=== PATIENT | female | born 1950 | race Caucasian/White ===

== ENCOUNTER 2022-08-31 10:00 | Day surgery (SDC) | payer MEDICARE, SELFPAY ==
[2022-08-31 10:05] VITALS: BP 171/90; PULSE 70; RESP 20; TEMP 36.5; O2SAT 98
--- NOTE | 2022-08-31 10:35 | ANES.PREOP_ITS ---
General Info Date of Service Date Performed: 08/31/22 Height: 5 ft 2 in Weight: 111.6 kg Body Mass Index (BMI): 45.0 Surgical Procedure: Operation Date: 08/31/22 13:40 Proposed Procedure Side Surgeon p Cataract Extraction with IOL Implant Left Levar Frazier MD Meds Allergies and Home Medications Allergies Allergy/AdvReac Type Severity Reaction Status Date / Time celecoxib [From Celebrex] AdvReac Verified 08/31/22 10:14 zolpidem [From Ambien] AdvReac Verified 08/31/22 10:14 Home Medication Medication Instructions Recorded acetaminophen 500 mg tablet 1,000 mg PO Q6H PRN 03/27/21 (Tylenol Extra Strength) albuterol sulfate 2.5 mg/3 mL 2.5 mg inhalation Q4H PRN 03/27/21 (0.083 %) solution for nebulization albuterol sulfate 90 mcg/actuation 2 puff inhalation 6XD 03/27/21 aerosol inhaler aspirin 81 mg tablet,delayed 81 mg PO DAILY 03/27/21 release atorvastatin 10 mg tablet 10 mg PO DAILY 03/27/21 fluticasone propionate 230 2 puff inhalation BID 03/27/21 mcg-salmeterol 21 mcg/actuation HFA inhaler (Advair HFA) levothyroxine 175 mcg tablet 175 mcg PO DAILY 03/27/21 metformin 500 mg tablet 500 mg PO BID 03/27/21 calcium carbonate 600 mg calcium 600 mg PO DAILY 03/18/22 (1,500 mg) tablet (Calcium) meloxicam 7.5 mg tablet 7.5 mg PO DAILY 03/18/22 stool softner PO 03/18/22 Current Visit Medications: Current Medications Generic Name Dose Route Start Last Admin Trade Name Freq PRN Reason Stop Dose Admin Acetaminophen 1,000 mg 08/31/22 06:00 Acetaminophen 500 Mg Tab PO Q4H PRN PRN Miscellaneous Medication 0 ml 08/31/22 06:00 08/31/22 10:30 Tropicam./Phenyleph. (1/2.5%) 10 Ml Btl OS 1 drp DIRECTED [facility] Administration Miscellaneous Medication 0 ml 08/31/22 06:00 Prednisolone 1%, Moxifloxacin 0.5%, Nepafenac 0.1% 5ml Btl OS DIRECTED [facility] Tetracaine HCl 0 ml 08/31/22 06:00 Tetracaine 0.5% 4 Ml Btl OS DIRECTED [facility] PFSH Active Problems Active Problems: Problem Status Onset Code Hypothyroidism E03.9 Dyslipidemia E78.5 Secondary polycythemia D75.1 Insomnia G47.00 Obstructive sleep apnea syndrome in adult G47.33 Asthma J45.909 GERD (gastroesophageal reflux disease) K21.9 Non-alcoholic fatty liver disease K76.0 Posterior vaginal wall prolapse N81.6 Localized primary osteoarthritis M19.91 Arthropathy M12.9 Lower back pain M54.50 Sciatica M54.30 Backache M54.9 Dyspnea R06.00 History of malignant neoplasm of thyroid Z85.850 Pain, joint, shoulder, right M25.511 UIP (usual interstitial pneumonitis) J84.112 Esophageal dysphagia R13.19 Vocal cord paralysis, unilateral complete J38.01 URI (upper respiratory infection) J06.9 Medical History Medical History Failed intubation of airway Pt. stated this was when [facility] (Dr. Olson) was atempting to take a lung bx, wasn't able to do it and was sent to [facility] Interstitial lung disease Neutropenia Paralysis Paralysis of larynx Type 2 diabetes mellitus without complication Medical History Comments:: Hx of failed intubation @ [facility], was able to have procedure following this event at [facility] pt. stated this was over 10+ years ago Surgical History Surgical History H/O dilation and curettage H/O total thyroidectomy History of bronchoscopy History of lung biopsy History of thoracotomy History of tonsillectomy and adenoidectomy History of tubal ligation Hx of appendectomy Hx of colonoscopy S/P partial lobectomy of lung S/P TKR (total knee replacement) Tobacco Smoking/Tobacco Use Status: Never Substance Use Substance use type: does not use Vital Signs and Lab Results Vital Signs Most Recent Vital Signs in EMR: Most Recent Vital Signs Temp Pulse Resp BP Pulse Ox 36.5 C 70 20 171/90 H 98 08/31/22 10:05 08/31/22 10:05 08/31/22 10:05 08/31/22 10:05 08/31/22 10:05 Point of Care Results Point of Care Results: Finger Stick Blood Glucose 135 08/31/22 10:13 Lab Results Blood Type / Crossmatch: No Data to Display Complete Blood Count: No Data to Display Complete Metabolic Panel: No Data to Display Liver Function Panel: No Data to Display Coagulation Panel: No Data to Display Cardiac Panel: No Data to Display Arterial Blood Gas: No Data to Display Venous Blood Gas: No Data to Display Pancreas Panel: No Data to Display Thyroid Panel: No Data to Display Infectious Disease: No Data to Display Blood Cultures: No Data to Display Toxicology Panel: No Data to Display Anesthesia Assessment and Plan Anesthesia History Personal History: Other (per review of records, able to intubate but unable to pass double lumen tube x 2 in [place] in 2010) Family History: No Family History of Anesthesia Complications Exercise Tolerance Exercise Tolerance: Metabolic Equivalents<4 Pertinent Negatives Pertinent Negatives: No Symptoms of GERD and No Major Cardiovascular Symptoms or Complaints Cardiac & Pulmonary Exam Cardiac Exam: Normal S1/S2 Heart Sounds Pulmonary Exam: Clear Bilateral Breath Sounds (some dyspnea at rest) Implantable Cardiac Device Does patient have a Pacemaker or an ICD?: No Airway Exam Known Difficult Airway: Yes Previous Airway Comments:: See comments under Anesthesia History Mallampati Class: 2 Mouth Opening: Normal (> 3cm) Thyromental Distance: Greater than 3 cm Neck Range of Motion: Full ROM Neck Circumference: Thick Teeth Condition: Normal Dentition ASA Classification ASA Score: ASA 3 Emergency Case?: No NPO Status NPO Status: NPO Clears >2 hours, Solids >8 hours Anesthesia Plan Resuscitation Status: Full Code Anesthesia Technique: MAC Anesthesia Airway Planned: Natural Airway Monitors Used: Standard Monitors
[2022-08-31 10:54] VITALS: BMI 45.0
[2022-08-31] MEDS: Tetracaine 0.5% 4 ML BTL OS (12:03)
[2022-08-31] MEDS: Balanced Salt Soln.-PLUS 500 ML BAG ×2 (12:04→12:10)
[2022-08-31] MEDS: Lidocaine 1% Pres-Free 5 ML VIAL (12:05)
[2022-08-31] MEDS: Phenylephrine/Lidocaine (15/10) MG/ML 1 ML VIAL (12:06)
[2022-08-31] MEDS: Duovisc Viscoelastic System EACH 1 EACH (12:07)
[2022-08-31] MEDS: Povidone-Iodine Ophth 30 ML BTL (12:08)
[2022-08-31 12:15] VITALS: BP 171/75; PULSE 70; RESP 18; TEMP 36.1; O2SAT 98
--- NOTE | 2022-08-31 12:17 | W.PM.DSUDISC ---
Date of service: 08/31/22 Time of Service: 12:17 Discharge Plan Disposition Patient Disposition: Home Discharge Details Attending Provider: Levar Frazier Primary Care Provider: Wilfredo Jovel Home Meds and New Rx's Prescriptions: No Action meloxicam 7.5 mg tablet 7.5 mg PO DAILY stool softner PO calcium carbonate [Calcium 600] 600 mg calcium (1,500 mg) tablet 600 mg PO DAILY Advair HFA 230-21 mcg/actuation HFA aerosol inhaler 2 puff inhalation BID albuterol sulfate 2.5 mg /3 mL (0.083 %) solution for nebulization 2.5 mg inhalation Q4H PRN albuterol sulfate 90 mcg/actuation HFA aerosol inhaler 2 puff inhalation 6XD aspirin 81 mg tablet,delayed release (DR/EC) 81 mg PO DAILY atorvastatin 10 mg tablet 10 mg PO DAILY levothyroxine 175 mcg tablet 175 mcg PO DAILY metformin 500 mg tablet 500 mg PO BID acetaminophen [Tylenol Extra Strength] 500 mg tablet 1,000 mg PO Q6H PRN Discharge Instructions Stand Alone Forms: Post-op Topical Cataract, Skip Jacobs (DSU) Discharge Orders Discharge Orders: Discharge Order (Routine); Ordered 08/31/22 Ordered By: Levar Frazier DS: Diagnosis Discharge Diagnosis (1) Nuclear age-related cataract, left eye: Status: Resolved (2) Posterior subcapsular age-related cataract of left eye: Status: Resolved
--- NOTE | 2022-08-31 12:18 | W.PM.OP ---
Date of service: 08/31/22 Time of Service: 12:18 Operative Note Operative Note DATE OF PROCEDURE: 08/31/22 PRE-OP DIAGNOSIS: Nuclear/posterior subcapsular cataract, left eye POST-OP DIAGNOSIS: same PROCEDURE: Cataract extraction using phacoemulsification with intraocular lens implant, left eye SURGEON: Levar Frazier ANESTHESIA TYPE: Local By Surgeon and MAC Refer to Anesthesia Record PATHOLOGY: none sent COMPLICATIONS: None Patient was transported to: same day Patient's condition: stable Implants: Eugene and Eugene Tecnis Eyhance [id number] Indications: Progressive decreased vision due to cataract, left eye Procedure Description: CATARACT SURGERY OPERATIVE REPORT PREOPERATIVE DIAGNOSIS: 1. Nuclear/posterior subcapsular cataract, left eye POSTOPERATIVE DIAGNOSIS: Same OPERATION: 1. Cataract extraction using phacoemulsification with posterior chamber intraocular lens implant, left eye. IOL: IOL Document Control Assistant/Model: Eugene & Eugene Tecnis Eyhance [id number] IOL Power: + 19.5 diopters IOL Serial Number: [id number] Optic Diameter: 6.0 mm Haptic/Overall Diameter: 13.0 mm PHACO INFO: Chilo MindBodyGreenurion Vision System with OZil and Active Fluidics Cumulative Dispersed Energy (CDE): 5.57 seconds SURGEON: Levar Frazier MD, RADHA ANESTHESIA: Monitored [facility] (MAC), with local sub-tenon's anesthetic infiltration COMPLICATIONS: None SPECIMENS: None INDICATIONS FOR PROCEDURE: The patient is a 72-year-old lady with history of diminished visual acuity in her left eye secondary to the development of nuclear/posterior subcapsular cataract. She is significantly symptomatic that she desires cataract surgery and attempt to improve and maximize her vision. The option of cataract surgery was offered to the patient and she wished to proceed. PROCEDURE: The correct surgical eye was identified and marked as the left eye and the pupil was dilated in the preoperative area using mydriatics and cycloplegics. The dilated pupil size was 8.0 mm. The patient elected to proceed without oral sedation. The patient was brought to the operating room where cardiopulmonary monitoring was instituted and surgical time-out was performed, confirming the correct operative eye and IOL power. Topical anesthesia was administered and ophthalmic povidone-iodine 5% was instilled into the conjunctival fornices. Lidocaine gel was applied to the cornea and the andre-ocular area was prepped with Betadine 10% solution and draped in the usual sterile fashion for intraocular surgery, including an aperture drape. A Tegaderm transparent film dressing was cut in half and used to cover the lashes and lid margins. Care was taken to sequester the lashes and lid margins under the Tegaderm dressing. A lid speculum was placed between the lids of the operative eye and the Chilo LuxOR Revalia operating microscope was maneuvered into position. Brianda scissors were then used to make a conjunctival buttonhole approximately 6mm posterior to the limbus in the inferonasal quadrant. Blunt dissection was carried out to expose bare sclera, and a blunt-tipped sub-tenon?s anesthesia cannula was introduced and passed posteriorly along the globe where non-preserved plain lidocaine was injected into posterior sub-Tenon?s space. A sideport knife was used to make a paracentesis port superiorly/superiortemporally. Intraocular phenylephrine/lidocaine was injected int the anterior chamber.. The anterior chamber was filled with viscoelastic. A keratome knife was used to construct a 2-plane near-clear corneal tunnel extending 2.0mm into clear cornea temporally. A flap was raised on the anterior capsule and capsulorhexis forceps were used to complete a continuous curvilinear capsulorhexis of 5.5 mm. Balanced salt solution was then used to perform cortical cleaving hydrodissection and nuclear hydrodelineation until the lens could be freely rotated within the capsular bag. The lens nucleus was then disassembled and removed within the capsular bag and iris plane using phacoemulsification. Residual cortical material was removed using the 45-degree angled silicone I/A tip with 0.3mm port. The posterior capsule was carefully polished to remove as much residual lens epithelial cells as safely possible. The capsular bag was then inflated and the anterior chamber deepened with viscoelastic. The lens implant described above was inserted into the capsular bag using the Eugene and Eugene Simplicity pre-loaded injector. . A Kuglen hook was used to dial the IOL into position. Residual viscoelastic was then removed first from posterior to the IOL, then from the anterior chamber using the I/A handpiece. The lens implant was noted to center nicely within the capsular bag. The incisions were stromally hydrated, and the anterior chamber was reformed using BSS. Then 0.5cc of moxifloxacin 1.0mg/ml were injected into the capsular bag and anterior chamber. The incisions were checked with a Weck spear and found to be secure. Several drops of ophthalmic povidone-iodine 5% were then applied to the eye followed by two drops of Imprimis combination prednisolone/moxifloxacin/nepafenac solution. The drapes were removed and a clear plastic protective eye shield was placed over the eye. The patient was then returned to [facility] in stable condition.
--- NOTE | 2022-08-31 12:47 | W.ANESPOSTOP ---
Postoperative Evaluation Date, Time and Location Date Performed: 08/31/22 Time Performed: 12:20 Patient Location: Day Surgery Unit Vital Signs Most Recent Imported Vital Signs: Most Recent Vital Signs Temp Pulse Resp BP Pulse Ox 36.1 C L 70 18 171/75 H 98 08/31/22 12:15 08/31/22 12:15 08/31/22 12:15 08/31/22 12:15 08/31/22 12:15 Pain Score Most Recent Pain Score: Most Recent Pain Score Pain Level 0 08/31/22 12:15 Assessment Mental Status: Awake (Alert & Oriented to Patient Baseline) Airway and Respiratory Function: Patent airway with normal (patient baseline) respiratory exam Cardiovascular Function: Hemodynamically Stable Hydration Status: Adequately Hydrated Nausea & Vomiting: No Nausea or Vomiting Pain: Pt. Denies Any Pain Peripheral Nerve Block: Patient did not receive a nerve block
== END 2022-08-31 12:40 | disposition home or self-care (01) ==
LOC: SUR 10:01
PROVIDERS: PCP Family Medicine; Visit Provider Ophthalmology
PROC: (CPT 66984; principal; 2022-08-31 13:30)
DX: H25.12 Age-related nuclear cataract, left eye (principal); H25.042 Posterior subcapsular polar age-related cataract, left eye; G47.33 Obstructive sleep apnea (adult) (pediatric); K21.9 Gastro-esophageal reflux disease without esophagitis
CPT/HCPCS: 66984; V2632

== ENCOUNTER 2022-09-14 07:11 | Day surgery (SDC) | payer MEDICARE, SELFPAY ==
--- NOTE | 2022-09-14 06:36 | W.ANESPRE ---
General Info Date of Service Date Performed: 09/14/22 Height: 5 ft 2 in Weight: 111.6 kg Body Mass Index (BMI): 45.0 Surgical Procedure: Operation Date: 09/14/22 09:40 Proposed Procedure Side Surgeon p Cataract Extraction with IOL Implant Right Levar Frazier MD Meds Allergies and Home Medications Allergies Allergy/AdvReac Type Severity Reaction Status Date / Time celecoxib [From Celebrex] AdvReac Verified 09/14/22 07:37 zolpidem [From Ambien] AdvReac Verified 09/14/22 07:37 Home Medication Medication Instructions Recorded acetaminophen 500 mg tablet 1,000 mg PO Q6H PRN 03/27/21 (Tylenol Extra Strength) albuterol sulfate 2.5 mg/3 mL 2.5 mg inhalation Q4H PRN 03/27/21 (0.083 %) solution for nebulization albuterol sulfate 90 mcg/actuation 2 puff inhalation 6XD 03/27/21 aerosol inhaler aspirin 81 mg tablet,delayed 81 mg PO DAILY 03/27/21 release atorvastatin 10 mg tablet 10 mg PO DAILY 03/27/21 fluticasone propionate 230 2 puff inhalation BID 03/27/21 mcg-salmeterol 21 mcg/actuation HFA inhaler (Advair HFA) levothyroxine 175 mcg tablet 175 mcg PO DAILY 03/27/21 metformin 500 mg tablet 1,000 mg PO BID 03/27/21 calcium carbonate 600 mg calcium 600 mg PO DAILY 03/18/22 (1,500 mg) tablet (Calcium) meloxicam 7.5 mg tablet 7.5 mg PO DAILY 03/18/22 stool softner PO 03/18/22 Current Visit Medications: Current Medications Generic Name Dose Route Start Last Admin Trade Name Freq PRN Reason Stop Dose Admin Acetaminophen 1,000 mg 09/14/22 06:00 Acetaminophen 500 Mg Tab PO Q4H PRN PRN Miscellaneous Medication 0 ml 09/14/22 06:00 Tropicam./Phenyleph. (1/2.5%) 5 Ml Btl OD [facility]ED [facility] Miscellaneous Medication 0 ml 09/14/22 06:00 Prednisolone 1%, Moxifloxacin 0.5%, Nepafenac 0.1% 5ml Btl OD DIRECTED [facility] Tetracaine HCl 0 ml 09/14/22 06:00 Tetracaine 0.5% 4 Ml Btl OD DIRECTED [facility] Active Problems Active Problems: Problem Status Onset Code Posterior subcapsular age-related cataract, right eye H25.041 Nuclear age-related cataract, right eye H25.11 Posterior subcapsular age-related cataract of left eye H25.042 Nuclear age-related cataract, left eye H25.12 Hypothyroidism E03.9 Dyslipidemia E78.5 Secondary polycythemia D75.1 Insomnia G47.00 Obstructive sleep apnea syndrome in adult G47.33 Asthma J45.909 GERD (gastroesophageal reflux disease) K21.9 Non-alcoholic fatty liver disease K76.0 Posterior vaginal wall prolapse N81.6 Localized primary osteoarthritis M19.91 Arthropathy M12.9 Lower back pain M54.50 Sciatica M54.30 Backache M54.9 Dyspnea R06.00 History of malignant neoplasm of thyroid Z85.850 Pain, joint, shoulder, right M25.511 UIP (usual interstitial pneumonitis) J84.112 Esophageal dysphagia R13.19 Vocal cord paralysis, unilateral complete J38.01 URI (upper respiratory infection) J06.9 Medical History Medical History Failed intubation of airway Pt. stated this was when [facility] (Dr. Olson) was atempting to take a lung bx, wasn't able to do it and was sent to [facility] Interstitial lung disease Neutropenia Paralysis Paralysis of larynx Type 2 diabetes mellitus without complication Medical History Comments:: Hx of failed intubation @ [facility], was able to have procedure following this event at [facility] pt. stated this was over 10+ years ago Surgical History Surgical History (Updated 09/14/22 @ 07:36 by Maryuri Santacruz) H/O dilation and curettage H/O total thyroidectomy History of bronchoscopy History of lung biopsy History of thoracotomy History of tonsillectomy and adenoidectomy History of tubal ligation Hx of appendectomy Hx of cataract removal with insertion of prosthetic lens Hx of colonoscopy S/P partial lobectomy of lung S/P TKR (total knee replacement) Tobacco Smoking/Tobacco Use Status: Never Substance Use Substance use type: does not use Vital Signs and Lab Results Vital Signs Most Recent Vital Signs in EMR: Temp Pulse Resp BP Pulse Ox 36.3 C L 77 18 152/85 H 99 09/14/22 07:15 09/14/22 07:15 09/14/22 07:15 09/14/22 07:15 09/14/22 07:15 Lab Results Blood Type / Crossmatch: No Data to Display Complete Blood Count: No Data to Display Complete Metabolic Panel: No Data to Display Liver Function Panel: No Data to Display Coagulation Panel: No Data to Display Cardiac Panel: No Data to Display Arterial Blood Gas: No Data to Display Venous Blood Gas: No Data to Display Pancreas Panel: No Data to Display Thyroid Panel: No Data to Display Infectious Disease: No Data to Display Blood Cultures: No Data to Display Toxicology Panel: No Data to Display Anesthesia Assessment and Plan Anesthesia History Personal History: Other (history of failed intubation. ) Family History: No Family History of Anesthesia Complications Exercise Tolerance Exercise Tolerance: Metabolic Equivalents<4 Cardiac & Pulmonary Exam Cardiac Exam: Normal S1/S2 Heart Sounds Pulmonary Exam: Clear Bilateral Breath Sounds Implantable Cardiac Device Does patient have a Pacemaker or an ICD?: No Airway Exam Known Difficult Airway: Yes Mallampati Class: 2 Mouth Opening: Normal (> 3cm) Thyromental Distance: Greater than 3 cm Neck Range of Motion: Full ROM Neck Circumference: Thick Teeth Condition: Normal Dentition ASA Classification ASA Score: ASA 3 Emergency Case?: No NPO Status NPO Status: NPO Clears >2 hours, Solids >8 hours Anesthesia Plan Resuscitation Status: Full Code Anesthesia Technique: MAC Anesthesia Airway Planned: Natural Airway Monitors Used: Standard Monitors Preoperative Comments:: 72 yo female for repeat cataract. No mko for first. no change in health history. would like to proceed with no MKO again. Sig PMHx: DIANE, asthma/ILD (albuterol, Advair), larynx paralysis, GERD, hypothyroid (levothyroxine), DM (metformin), fatty liver, never smoker.
[2022-09-14 07:15] VITALS: BP 152/85; PULSE 77; RESP 18; TEMP 36.3; O2SAT 99
[2022-09-14] MEDS: Tropicam./Phenyleph. (1/2.5%) 5 ML BTL OD ×3 (07:41→07:56)
[2022-09-14 07:50] VITALS: BMI 45.0
[2022-09-14] MEDS: Balanced Salt Soln.-PLUS 500 ML BAG (08:43)
[2022-09-14] MEDS: Tetracaine 0.5% 4 ML BTL OD (08:43)
[2022-09-14] MEDS: Duovisc Viscoelastic System EACH 1 EACH (08:44)
[2022-09-14] MEDS: Lidocaine 1% Pres-Free 5 ML VIAL (08:44)
[2022-09-14] MEDS: Phenylephrine/Lidocaine (15/10) MG/ML 1 ML VIAL (08:45)
[2022-09-14] MEDS: Povidone-Iodine Ophth 30 ML BTL (08:45)
[2022-09-14 09:04] VITALS: BP 131/74; PULSE 72; RESP 20; TEMP 36.1; O2SAT 97
--- NOTE | 2022-09-14 09:04 | W.PM.DSUDISC ---
Date of service: 09/14/22 Time of Service: 09:04 Discharge Plan Disposition Patient Disposition: Home Discharge Details Attending Provider: Levar Frazeir Primary Care Provider: Wilfredo Jovel Home Meds and New Rx's Prescriptions: No Action meloxicam 7.5 mg tablet 7.5 mg PO DAILY stool softner PO calcium carbonate [Calcium 600] 600 mg calcium (1,500 mg) tablet 600 mg PO DAILY Advair HFA 230-21 mcg/actuation HFA aerosol inhaler 2 puff inhalation BID albuterol sulfate 2.5 mg /3 mL (0.083 %) solution for nebulization 2.5 mg inhalation Q4H PRN albuterol sulfate 90 mcg/actuation HFA aerosol inhaler 2 puff inhalation 6XD aspirin 81 mg tablet,delayed release (DR/EC) 81 mg PO DAILY atorvastatin 10 mg tablet 10 mg PO DAILY levothyroxine 175 mcg tablet 175 mcg PO DAILY metformin 500 mg tablet 1,000 mg PO BID acetaminophen [Tylenol Extra Strength] 500 mg tablet 1,000 mg PO Q6H PRN Discharge Instructions Stand Alone Forms: Post-op Topical Cataract, Skip Jacobs ([facility]) Discharge Orders Discharge Orders: Discharge Order (Routine); Ordered 09/14/22 Ordered By: Levar Frazier DS: Diagnosis Discharge Diagnosis (1) Nuclear age-related cataract, right eye: Status: Resolved (2) Posterior subcapsular age-related cataract, right eye: Status: Resolved
--- NOTE | 2022-09-14 09:06 | ROE_ITS ---
Date of service: 09/14/22 Time of Service: 09:06 Operative Note Operative Note DATE OF PROCEDURE: 09/14/22 PRE-OP DIAGNOSIS: Nuclear/posterior subcapsular cataract, right eye POST-OP DIAGNOSIS: same PROCEDURE: Cataract extraction using phacoemulsification with intraocular lens implant, right eye SURGEON: Levar Frazier ANESTHESIA TYPE: Local By Surgeon and MAC Refer to Anesthesia Record ESTIMATED BLOOD LOSS: 0 PATHOLOGY: none sent COMPLICATIONS: None Patient was transported to: same day Patient's condition: stable Implants: Eugene [employer] Eugene Tecnis Eyhance [id number] Indications: Progressive visual loss due to cataract, right eye Procedure Description: CATARACT SURGERY OPERATIVE REPORT PREOPERATIVE DIAGNOSIS: 1. Nuclear/posterior subcapsular cataract, right eye POSTOPERATIVE DIAGNOSIS: Same OPERATION: 1. Cataract extraction using phacoemulsification with posterior chamber intraocular lens implant, right eye. IOL: IOL Wool Fleece Grader/Model: Eugene [employer] Eugene Tecnis Eyhance DIB00 IOL Power: + 19.0 diopters IOL Serial Number: [id number] Optic Diameter: 6.0mm Haptic/Overall Diameter: 13.0mm PHACO INFO: Chilo [employer] Communicationsurion Vision System with OZil and Active Fluidics Cumulative Dispersed Energy (CDE): 4.01 seconds SURGEON: Levar Frazier MD, RADHA ANESTHESIA: Monitored Anesthesia Care (MAC), with local sub-tenon's anesthetic infiltration COMPLICATIONS: None SPECIMENS: None INDICATIONS FOR PROCEDURE: The patient is a 72-year-old lady with history of diminished visual acuity in her right eye secondary to the development of nuclear/posterior subcapsular cataract. She has already undergone cataract surgery in the left eye and is doing well postoperatively. She now presents for cataract surgery in the right eye. PROCEDURE: The correct surgical eye was identified and marked as the right eye and the pupil was dilated in the preoperative area using mydriatics and cycloplegics. The dilated pupil size was 7.0 mm. The patient elected to proceed without oral sedation. The patient was brought to the operating room where cardiopulmonary monitoring was instituted and surgical time-out was performed, confirming the correct operative eye and IOL power. Topical anesthesia was administered and ophthalmic povidone-iodine 5% was instilled into the conjunctival fornices. Lidocaine gel was applied to the cornea and the andre-ocular area was prepped with Betadine 10% solution and draped in the usual sterile fashion for intraocular surgery, including an aperture drape. A Tegaderm transparent film dressing was cut in half and used to cover the lashes and lid margins. Care was taken to sequester the lashes and lid margins under the Tegaderm dressing. A lid speculum was placed between the lids of the operative eye and the Chilo LuxOR Revalia operating microscope was maneuvered into position. Brianda scissors were then used to make a conjunctival buttonhole approximately 6mm posterior to the limbus in the inferonasal quadrant. Blunt dissection was carried out to expose bare sclera, and a blunt-tipped sub-tenon?s anesthesia cannula was introduced and passed posteriorly along the globe where non- preserved plain lidocaine was injected into posterior sub-Tenon?s space. A sideport knife was used to make a paracentesis port inferotemporally. Intraocular phenylephrine/lidocaine was injected into the anterior chamber. The anterior chamber was filled with viscoelastic. A keratome knife was used to construct a 2-plane near-clear corneal tunnel extending 2.0mm into clear cornea superiortemporally. A flap was raised on the anterior capsule and capsulorhexis forceps were used to complete a continuous curvilinear capsulorhexis of 5.0 mm. Balanced salt solution was then used to perform cortical cleaving hydrodissection and nuclear hydrodelineation until the lens could be freely rota shreya within the capsular bag. The lens nucleus was then disassembled and removed within the capsular bag and iris plane using phacoemulsification. Residual cortical material was removed using the I/A handpiece. The posterior capsule was carefully polished to remove as much residual lens epithelial cells as safely possible. The capsular bag was then inflated and the anterior chamber deepened with viscoelastic. The lens implant described above was inserted into the capsular bag using the Eugene and Michael Simplicity pre-loaded injector. A Kuglen hook was used to dial the IOL into position. Residual viscoelastic was then removed first from posterior to the IOL, then from the anterior chamber using the I/A handpiece. The lens implant was noted to center nicely within the capsular bag. The incisions were stromally hydrated, and the anterior chamber was reformed using BSS. Then 0.5cc of moxifloxacin 1.0mg/ml were injected into the capsular bag and anterior chamber. The incisions were checked with a Weck spear and found to be secure. Several drops of ophthalmic povidone-iodine 5% were then applied to the eye followed by two drops of Imprimis combination prednisolone/moxifloxacin/nepafenac solution. The drapes were removed and a clear plastic protective eye shield was placed over the eye. The patient was then returned to Same Day Surgery in stable condition.
--- NOTE | 2022-09-14 09:21 | W.ANESPOSTOP ---
Postoperative Evaluation Date, Time and Location Date Performed: 09/14/22 Time Performed: 09:21 Patient Location: Day Surgery Unit Vital Signs Most Recent Imported Vital Signs: Most Recent Vital Signs Temp Pulse Resp BP Pulse Ox 36.1 C L 72 20 131/74 97 09/14/22 09:04 09/14/22 09:04 09/14/22 09:04 09/14/22 09:04 09/14/22 09:04 Pain Score Most Recent Pain Score: Most Recent Pain Score Pain Level 2 09/14/22 09:04 Assessment Mental Status: Awake (Alert & Oriented to Patient Baseline) Airway and Respiratory Function: Patent airway with normal (patient baseline) respiratory exam Cardiovascular Function: Hemodynamically Stable Hydration Status: Adequately Hydrated Nausea & Vomiting: No Nausea or Vomiting Pain: Pt. Denies Any Pain Peripheral Nerve Block: Patient did not receive a nerve block
== END 2022-09-14 09:28 | disposition home or self-care (01) ==
LOC: SUR 07:11
PROVIDERS: PCP Family Medicine; Visit Provider Ophthalmology
PROC: (CPT 66984; principal; 2022-09-14 09:30)
DX: H25.11 Age-related nuclear cataract, right eye (principal); H25.041 Posterior subcapsular polar age-related cataract, right eye; Z98.49 Cataract extraction status, unspecified eye; G47.33 Obstructive sleep apnea (adult) (pediatric); K21.00 Gastro-esophageal reflux disease with esophagitis, without bleeding
CPT/HCPCS: 66984; V2632

== ENCOUNTER 2022-11-24 02:16 | Outpatient (CLI) | payer MEDICARE, SELFPAY ==
[2022-11-24] MEDS: Albuterol HFA 18 GM 200 PUFF INH IH (13:55)
[2022-11-24] MEDS: Inhaler, Assist Device 1 EACH MC (13:56)
--- NOTE | 2022-12-01 15:39 | W.PFT ---
Date of service: 11/24/22 Time of Service: 12:59 Pulmonary Function Test Result Indications: UIP-ILD Interpretation Spirometry: There is no airflow limitation. There is no bronchodilator response. Lung Volumes: Normal lung volumes Diffusion Capacity: Normal diffusion Airway Pressure: Normal airways resistance Impression Normal pulmonary function testing Clinical Correlation therefore is recommended.
== END 2022-11-24 02:17 | disposition home or self-care (01) ==
LOC: RT 02:16
PROVIDERS: PCP Family Medicine; Visit Provider Student in an Organized Health Care Education/Training Program
DX: J84.114 Acute interstitial pneumonitis (principal)
CPT/HCPCS: 94060; 94726; 94729

== ENCOUNTER → 2023-08-16 13:57 | Outpatient (BNVA) | payer MEDICARE, SELFPAY | PROVIDERS: PCP Family Medicine; Referring Provider Family Medicine; Visit Provider Physician Assistant Surgical | DX: J45.909 Unspecified asthma, uncomplicated (principal); J84.112 Idiopathic pulmonary fibrosis; G47.33 Obstructive sleep apnea (adult) (pediatric) | CPT/HCPCS: 99214 ==

== ENCOUNTER → 2023-11-24 09:32 | Outpatient (BNVA) | payer MEDICARE, SELFPAY | PROVIDERS: PCP Family Medicine; Referring Provider Family Medicine; Visit Provider Physician Assistant Surgical | DX: J45.909 Unspecified asthma, uncomplicated (principal); J84.112 Idiopathic pulmonary fibrosis; G47.33 Obstructive sleep apnea (adult) (pediatric) | CPT/HCPCS: 99214 ==

== ENCOUNTER 2024-02-21 15:30 | Outpatient (CLI) | payer MEDICARE, SELFPAY ==
--- NOTE | 2024-02-21 15:00 | DI.RAD_ITS ---
Exam(s) XR STANDING ALIGNMENT EXAM: XR STANDING ALIGNMENT CLINICAL HISTORY: TKR Planning. TECHNIQUE: 2D digital imaging was performed. Four images were obtained. COMPARISON: CR ORTHO KNEE RIGHT 4+VIEWS from 09/19/2020 FINDINGS: BONES: The hips are well maintained. The patient has a left total knee replacement. No gross abnorm alities seen on the single view. There are marked degenerative changes seen in the right knee charac terized by joint space narrowing and osteophytes. The findings are most marked in the medial femoral tibial joint. The ankles are well maintained.There is no significant leg length discrepancy. SOFT TISSUE: Normal. IMPRESSION: Marked degenerative changes seen in the right knee. DATA REPOSITORY: RADIATION DOSE DELIVERED:
--- NOTE | 2024-02-21 15:00 | DI.RAD_ITS ---
Exam(s) XR KNEE RT 1V EXAM: XR KNEE RT 1V CLINICAL HISTORY: TKR Planning. TECHNIQUE: 2D digital imaging was performed of the right knee. One views obtained. Lateral views w ere obtained. COMPARISON: CR ORTHO KNEE RIGHT 4+VIEWS from 09/19/2020 CR XR STANDING ALIGNMENT from 02/21/2024 FINDINGS: There are marked degenerative changes seen in the right knee on this lateral view. There is marked n arrowing of the patellofemoral joint. Subchondral sclerosis is also noted. There osteophytes seen a t the patellofemoral joint. There is also narrowing seen of the femoral tibial joint. No large join t effusion is seen. Bones are normally mineralized. The soft tissues are unremarkable. IMPRESSION: Marked degenerative changes of the right knee. DATA REPOSITORY: RADIATION DOSE DELIVERED:
== END 2024-02-21 15:31 | disposition home or self-care (01) ==
LOC: DIORS 15:30
PROVIDERS: PCP Family Medicine; Referring Provider Family Medicine; Visit Provider Student in an Organized Health Care Education/Training Program
DX: M17.11 Unilateral primary osteoarthritis, right knee (principal)
CPT/HCPCS: 99213; 73560; 77073

== ENCOUNTER 2024-05-30 06:42 | Day surgery (SDC) | payer MEDICARE, SELFPAY ==
[2024-05-30] VITALS (14 sets, daily range): BP systolic 101–166; BP diastolic 51–75; PULSE 60–86; RESP 13–25; TEMP 36.1–36.5; O2SAT 92–99; BMI 41.5
[2024-05-30] MEDS: Normal Saline 500 ML 30 ML IV (07:21)
[2024-05-30] MEDS: Gabapentin 300 MG CAP PO (07:23)
[2024-05-30] MEDS: Meloxicam 15 MG TAB PO (07:23)
[2024-05-30] MEDS: Acetaminophen 500 MG TAB 1000 MG PO (07:23)
--- NOTE | 2024-05-30 07:27 | PDOC.DSDIS_ITS ---
Date of service: 05/30/24 Discharge Plan Disposition Patient Disposition: Home Condition: Good Discharge Details Reason For Visit: Right knee DJD Attending Provider: Von Corado Primary Care Provider: Wilfredo Jovel Home Meds and New Rx's Prescriptions: New aspirin 81 mg tablet,delayed release (DR/EC) 81 mg PO BID 30 Days Qty: 60 0RF acetaminophen 500 mg tablet 1,000 mg PO Q8H PRN Qty: 90 0RF Rx Instructions: Take two tablets up to every 8 hours as needed for pain pantoprazole 40 mg tablet,delayed release (DR/EC) 40 mg PO DAILY Qty: 14 0RF docusate sodium [Colace] 100 mg capsule 100 mg PO BID Qty: 30 0RF gabapentin 300 mg capsule 300 mg PO QHS Qty: 14 0RF Rx Instructions: Take one tablet at bedtime oxycodone 5 mg tablet 5 mg PO Q4H PRNQty: 18 0RF Rx Instructions: Take one tablet up to every 4 hours as needed for severe postoperative pain meloxicam 15 mg tablet 15 mg PO DAILY Qty: 30 1RF Rx Instructions: Take one tablet daily for pain and inflammation Continued Spiriva Respimat 1.25 mcg/actuation mist 2 puff inhalation DAILY Qty: 4 12RF albuterol sulfate 2.5 mg /3 mL (0.083 %) solution for nebulization 2.5 mg inhalation Q4H PRN (Reason: shortness of breath or wheezing) Qty: 540 12RF Advair HFA 230-21 mcg/actuation HFA aerosol inhaler 2 puff inhalation BID albuterol sulfate 90 mcg/actuation HFA aerosol inhaler 2 puff inhalation 6XD atorvastatin 10 mg tablet 10 mg PO DAILY metformin 500 mg tablet 1,000 mg PO BID levothyroxine 175 mcg tablet 150 mcg PO DAILY Incruse Ellipta 62.5 mcg/actuation blister with device 1 inh inhalation DAILY Qty: 30 12RF prednisone 10 mg tablet 10 mg PO DAILY PRN Rx Instructions: Take 40mg (4 tablets) one a day for 4 days, 30mg (3 tablets) once a day for 3 days, 20mg (2 tablets) once a day for 3 days , 10mg (1 tablet) for 2 days, 5mg (0.5 tablets) for 2 days Discontinued meloxicam 7.5 mg tablet 7.5 mg PO DAILY aspirin 81 mg tablet,delayed release (DR/EC) 81 mg PO DAILY acetaminophen [Tylenol Extra Strength] 500 mg tablet 1,000 mg PO Q6H PRN Discharge Instructions Additional Instructions: Total Knee Discharge Instructions Activity: The most important activity is to walk and to work on gentle motion (both flexion and extension). You should try to take short walks a few times a day. It is important that when resting you work on keeping the knee straight. Avoid putting a pillow behind the knee as this will encourage flexion. Work on range of motion exercises as provided by Physical Therapy. - Start outpatient physical therapy within 2 weeks. - You should wear the MARIVEL hose on both legs for 2 weeks. You may remove these at night. You may also use any compression sock in place of the MARIVEL hose. - Utilize [employer] to review exercises, see videos on exercises and obtain basic information pertaining to your surgery and your recovery. Dressing: Remove the Magan wrap by 2 days after your surgery and put on the MARIVEL stocking given to you from the hospital. Keep the surgical dressing (underneath the MAGAN wrap) in place for at least one week. After the first week it may be removed and replaced with light gauze and tape or nothing. The wound and dressing may get wet after 3 days but avoid soaking the dressing or otherwise it will need to be changed. Many people prefer covering the dressing with cling wrap (saran wrap) to minimize it from getting soaked. If it gets wet, just pat dry. If it starts to peel off then it will need to be changed. Medications: - You should take Tylenol and anti-inflammatory Meloxicam as your primary pain control medications. If the Meloxicam is too expensive or not covered, please call the office for another alternative (Advil/Ibuprofen or Naproxen/Aleve) - You have been prescribed a stronger pain medication Oxycodone for breakthrough pain, take as needed as prescribed. - You have also been prescribed a stomach acid reduction agent Pantoprozole to help reduce stomach acid and reflux. - You have been prescribed Gabapentin to take at night for restlessness and nerve pain. - You will be taking Aspirin 81mg twice a day for DVT prevention unless instructed otherwise. - If you have constipation you should take Colace (which has been prescribed) or Miralax (which is available [id number]). It takes most people 3-4 days to have a bowel movement. Follow-up: 2 weeks If you have any acute concerns or questions, please do not hesitate to contact the office at [phone]. You may contact Dr. Corado with any questions after hours through the hospital at [phone] or on his cell phone at [phone]. Referrals: Von Corado MD [ [facility] STAFF PHYSICIAN] - Equipment/Supplies: Walker Activity:: Elevate Remove Dressings/Wound Care:: Do Not Remove Shower/Bathe:: Cover Diet:: As Tolerated Discharge Orders Discharge Orders: Discharge Order (Routine); Ordered 05/30/24 Ordered By: Natalya Peng
--- NOTE | 2024-05-30 08:04 | W.ANESPRE ---
General Info Date of Service Date Performed: 05/30/24 Height: 5 ft 1 in Weight: 99.6 kg Body Mass Index (BMI): 41.5 Surgical Procedure: Operation Date: 05/30/24 09:40 Proposed Procedure Side Surgeon p Knee Total Arthroplasty, Cementless Right Von Corado MD Meds Allergies and Home Medications Allergies Allergy/AdvReac Type Severity Reaction Status Date / Time celecoxib (From Celebrex) AdvReac Unknown chestpain Verified 05/30/24 07:12 zolpidem (From Ambien) AdvReac Unknown nightmares Verified 05/30/24 07:12 Home Medication ?Medication ?Instructions ?Recorded albuterol sulfate 90 mcg/actuation 2 puff inhalation 6XD 03/27/21 aerosol inhaler atorvastatin 10 mg tablet 10 mg PO DAILY 03/27/21 fluticasone propionate 230 2 puff inhalation BID 03/27/21 mcg-salmeterol 21 mcg/actuation HFA inhaler (Advair HFA) metformin 500 mg tablet 1,000 mg PO BID 03/27/21 levothyroxine 175 mcg tablet 150 mcg PO DAILY 12/11/22 albuterol sulfate 2.5 mg/3 mL 2.5 mg (3 mL) inhalation Q4H PRN 08/16/23 (0.083 %) solution for nebulization shortness of breath or wheezing #540 mL tiotropium bromide 1.25 2 puff inhalation DAILY #4 grams 08/16/23 mcg/actuation mist for inhalation (Spiriva Respimat) umeclidinium 62.5 mcg/actuation 1 inh inhalation DAILY #30 ea 08/17/23 blister powder for inhalation (Incruse Ellipta) prednisone 10 mg tablet 10 mg PO DAILY PRN 05/29/24 acetaminophen 500 mg tablet 1,000 mg (2 x 500 mg) PO Q8H PRN 05/30/24 pain #90 tabs aspirin 81 mg tablet,delayed 81 mg PO BID 30 days #60 tabs 05/30/24 release docusate sodium 100 mg capsule 100 mg PO BID #30 caps 05/30/24 (Colace) gabapentin 300 mg capsule 300 mg PO QHS #14 caps 05/30/24 meloxicam 15 mg tablet 15 mg PO DAILY #30 tabs 05/30/24 oxycodone 5 mg tablet 5 mg PO Q4H PRN #18 tabs 05/30/24 pantoprazole 40 mg tablet,delayed 40 mg PO DAILY #14 tabs 05/30/24 release Current Visit Medications: Current Medications Generic Name Dose Route Start Last Admin Trade Name Matti PRN Reason Stop Dose Admin Acetaminophen 1,000 mg 05/30/24 06:00 05/30/24 07:23 Acetaminophen 500 Mg Tab PO 06/28/24 23:59 1,000 mg PREOP ROMAN Administration Gabapentin 300 mg 05/30/24 06:00 05/30/24 07:23 Gabapentin 300 Mg Cap PO 06/28/24 23:59 300 mg PREOP ROMAN Administration Hydromorphone HCl 0.5 mg 05/30/24 07:26 Hydromorphone 1 Mg/Ml Syr IVP 06/29/24 07:25 Q2H PRN PRN Cefazolin Sodium/Dextrose 2 gm in 50 mls @ 100 mls/hr 05/30/24 06:00 Ancef Duplex IVPB 06/28/24 23:59 PREOP ROMAN Tranexamic Acid/Sodium Chloride 1,000 mg in 100 mls @ 600 mls/hr 05/30/24 06:00 IVPB 06/28/24 23:59 PREOP ROMAN Sodium Chloride 500 mls @ 30 mls/hr 05/30/24 07:00 05/30/24 07:21 Saline 500ml Bag IV 06/29/24 06:59 30 mls/hr INFUSION ROMAN Administration Cefazolin Sodium/Dextrose 1 gm in 50 mls @ 100 mls/hr 05/30/24 08:00 Ancef Duplex IVPB 05/31/24 00:29 Q8H ROMAN IV Miscellaneous Supplies 1 each 05/30/24 06:00 Iv Access IV 06/28/24 23:59 DIRECTED ROMAN Meloxicam 15 mg 05/30/24 06:00 05/30/24 07:23 Meloxicam 15 Mg Tab PO 05/30/24 23:59 15 mg PREOP ROMAN Administration Oxycodone HCl 0 mg 05/30/24 07:26 Oxycodone 5 Mg Tab PO 06/29/24 07:25 Q3H PRN PRN Pain Sodium Chloride 0 ml 05/30/24 06:00 Normal Saline Flush 10 Ml Syr IV 06/28/24 23:59 PRN PRN Sodium Chloride 0 ml 12/17/24 06:00 Normal Saline 10 Ml Vial IJ 06/28/24 23:59 DIRECTED PRN Sterile Water 0 ml 05/30/24 06:00 Water,Injection,Sterile 10 Ml Vial IJ 06/28/24 23:59 DIRECTED PRN PFSH Active Problems Active Problems: Problem Status Onset Code History of total right knee replacement Acute 05/30/24 Z96.651 Hypothyroidism Chronic E03.9 Dyslipidemia Acute E78.5 Secondary polycythemia Acute D75.1 Insomnia Acute G47.00 Obstructive sleep apnea syndrome in adult Acute G47.33 Asthma Chronic J45.909 GERD (gastroesophageal reflux disease) Chronic K21.9 Non-alcoholic fatty liver disease Acute K76.0 Posterior vaginal wall prolapse Acute N81.6 Localized primary osteoarthritis Acute M19.91 Arthropathy Acute M12.9 Lower back pain Acute M54.50 Sciatica Acute M54.30 Backache Acute M54.9 Dyspnea Acute R06.00 History of malignant neoplasm of thyroid Acute Z85.850 Pain, joint, shoulder, right Acute M25.511 UIP (usual interstitial pneumonitis) Acute J84.112 Esophageal dysphagia Acute R13.19 Vocal cord paralysis, unilateral complete Acute J38.01 URI (upper respiratory infection) Acute J06.9 Nuclear age-related cataract, left eye Resolved H25.12 Posterior subcapsular age-related cataract of left eye Resolved H25.042 Nuclear age-related cataract, right eye Resolved H25.11 Posterior subcapsular age-related cataract, right eye Resolved H25.041 Medical History Medical History (Updated 05/30/24 @ 07:57 by Sravan Asher RN) 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 stated this was when Ambika (Dr. Olson) was atempting to take a lung bx, wasn't able to do it and was sent to [facility] Interstitial lung disease Paralysis Neutropenia Type 2 diabetes mellitus without complication Medical History Comments:: Failed intubation from vocal cord paralysis-see chart hx. reviewed with MELANY 05/26/24 Surgical History Surgical History (Updated 05/30/24 @ 07:57 by Sravan Asher RN) Hx of cataract removal with insertion of prosthetic lens Hx of appendectomy History of tubal ligation H/O dilation and curettage S/P partial lobectomy of lung History of bronchoscopy History of thoracotomy Hx of colonoscopy S/P TKR (total knee replacement) History of lung biopsy History of tonsillectomy and adenoidectomy H/O total thyroidectomy Tobacco Smoking/Tobacco Use Status: Never Alcohol Alcohol Intake: never Substance Use Substance use type: does not use Vital Signs and Lab Results Vital Signs Most Recent Vital Signs in EMR: Most Recent Vital Signs Temp Pulse Resp BP Pulse Ox 36.4 C L 69 16 166/75 H 98 05/30/24 07:00 05/30/24 07:00 05/30/24 07:00 05/30/24 07:00 05/30/24 07:00 Point of Care Results Point of Care Results: Finger Stick Blood Glucose 156 05/30/24 06:56 Lab Results Blood Type / Crossmatch: No Data to Display Complete Blood Count: No Data to Display Complete Metabolic Panel: No Data to Display Liver Function Panel: No Data to Display Coagulation Panel: No Data to Display Cardiac Panel: No Data to Display Arterial Blood Gas: No Data to Display Venous Blood Gas: No Data to Display Pancreas Panel: No Data to Display Thyroid Panel: No Data to Display Infectious Disease: No Data to Display Blood Cultures: No Data to Display Toxicology Panel: No Data to Display Anesthesia Assessment and Plan Anesthesia History Personal History: Other Family History: No Family History of Anesthesia Complications Exercise Tolerance Exercise Tolerance: Metabolic Equivalents<4 Pertinent Negatives Pertinent Negatives: No Symptoms of GERD Cardiac & Pulmonary Exam Cardiac Exam: Normal S1/S2 Heart Sounds Pulmonary Exam: Rales Present Implantable Cardiac Device Does patient have a Pacemaker or an ICD?: No Airway Exam Known Difficult Airway: Yes Mallampati Class: 3 Mouth Opening: Normal (> 3cm) Thyromental Distance: Greater than 3 cm Neck Range of Motion: Full ROM Neck Circumference: Thick Teeth Condition: Normal Dentition ASA Classification ASA Score: ASA 3 Emergency Case?: No NPO Status NPO Status: NPO Clears >2 hours, Solids >8 hours Anesthesia Plan Resuscitation Status: Full Code Anesthesia Technique: Spinal Anesthesia Airway Planned: Natural Airway Pain Management: Surgeon and patient request nerve block Monitors Used: Standard Monitors
[2024-05-30] MEDS: ceFAZolin 2 GM/50 ML BAG IVPB (09:00)
[2024-05-30] MEDS: TRANEXAMIC ACID/SOD. CHL. 1,000 MG/100 ML BAG 600 MG IVPB (09:10)
--- NOTE | 2024-05-30 09:52 | W.ANESNERVE ---
Nerve Block Single Injection Procedure Date and Time Date Performed: 05/30/24 Procedure Start: 08:35 Location Where Procedure Performed Procedure Location: Day Surgery Unit Reason Performed: Postoperative Analgesia Requesting Provider: Von Corado Timeout Performed Timeout Performed: Yes Monitoring Used ECG, Blood Pressure, SpO2 and See EMR for corresponding vital signs Sterility Sterility: Hand Hygiene, Surgical Cap, Surgical Mask and Chlorhexidine Sedation Given During Procedure Sedation Given (Indicate Dose Given): Versed IV Dose:: 2mg Patient Mental Status Patient Mental Status: Sedate with meaningful communication Nerve Block 1st Nerve Block: Laterality: Right Block Type: Adductor Canal Ultrasound Image Saved?: Yes Needle / Catheter Used: 100mm SonoPlex II Local Anesthetic Bolus (Indicate Dose Given): Lidocaine used for local infiltration of skin and Ropivacaine 0.5% Dose:: 0.5%/25cc (125mg) Additives (Indicate Dose Given): Epinephrine to make 1:200,000 (5mcg/ml) Dose:: 125mcg and Decadron Dose:: 10mg PF Ultrasound: Sterile probe cover and gel used Nerve Stimulator: Not Used Paresthesia: None Procedure Tolerated: No Complications and Patient tolerated well Procedure Outcome: Successful Performed By: Vito Angel
--- NOTE | 2024-05-30 11:56 | W.PM.OP ---
Operative Note Operative Note PRE-OP DIAGNOSIS: Right Knee Osteoarthritis POST-OP DIAGNOSIS: same PROCEDURE: Right Total Knee Replacement SURGEON: Von Corado DIETARY ASSISTANT: Natalya Peng ANESTHESIA TYPE: Spinal Refer to Anesthesia Record ESTIMATED BLOOD LOSS: 50 PATHOLOGY: none sent TOURNIQUET TIME: 0 COMPLICATIONS: None Patient was transported to: PACU Patient's condition: stable Implants: 1. Depuy Attune Cementless Cruciate Retaining Femoral Component, Size 4 2. Depuy Attune Cementless Fixed Bearing Tibial Component, Size 3 3. Depuy Attune 4x5mm CR/FB Poly 4. Depuy Attune Patellar Component, Size 35 Indications: I have seen Sindhu in clinic for symptoms of knee arthritis, confirmed with radiographic findings. She has exhausted nonoperative methods and was having significant limitations in daily function and desired better function and less pain. I discussed the technical details of a knee replacement. I explained the risks of the procedure to include, but not limited to, bleeding, infection, pain, stiffness, fracture, damage to nerves and vessels, damage to muscles and tendons, loosening, need for repeat procedure, blood clot and cardiopulmonary demise. Despite these risks, Sindhu elected to proceed. Findings: There was significant signs of arthritis throughout the knee. Procedure Description: Sindhu was greeted in the preoperative holding area where the correct side was identified and marked. The consent was reviewed with the patient and signed. The history and physical was updated. All questions were answered. Preoperative medications were administered: Acetaminophen 1000mg, Celebrex 400mg, and Gabapentin 300mg. An adductor canal block was then administered by the anesthesia team in the DSU. Sindhu was taken back to the operating room. A spinal anesthestic was then administered. The patient was placed into the supine position on the operating room table. Posts were placed for positioning during the procedure. All bony prominences were well padded. Prophylactic antibiotics in the form of Cefazolin were administered. 1g of Tranxemic Acid was given intravenously within 30 minutes of incision. The right leg was then prepped with Chloraprep and draped in a standard fashion with impervious stockinette. A second prep with Chloraprep was performed prior to application of Iodine impregnated skin protection. A timeout to confirm correct identity, side and site, procedure, allergies, anesthesia, and medical concerns was performed. With the knee in some flexion, a midline incision was made overlying the knee. Full thickness skin flaps were raised once the extensor mechanism was encountered. These were raised medially and laterally. Any bleeding was controlled with electrocautery. Once the extensor mechanism was fully exposed, a medial parapatellar arthrotomy was performed in a flexed position. All bleeding from the arthrotomy and the geniculate arteries was coagulated. A medial subperiosteal peel was performed with electrocautery to the midcoronal plane. Due to the significant varus deformity the entire medial tibial plateau was exposed. The fat pad was removed while keeping the patellar tendon protected. The anterior distal femur synovium was removed for later visualization. The ACL and PCL were resected and the anterior horn of the lateral meniscus was transected. The knee was then flexed with the patella everted. Large osteophytes from the tibia were removed. Large osteophytes from the femur were removed. Using a step drill, and based on preoperative templating, the femoral canal was entered. This was done with a step drill without any difficulty. The intramedullary distal femoral cut guide was inserted, set to a 5 degree valgus cut and 9mm cut thickness. The distal femoral cut guide was then held in position and pinned. With the soft tissues protected, the distal cut was performed. This was passed over a few times to ensure a planar cut. I then turned attention to the tibia. The extramedullary guide was placed onto the leg. The distal aspect was slid medial to adjust for position of center of ankle and stay in line with shaft of the tibia. Approximately 3-5 degrees of posterior slope was kept in the proximal cutting guide. The center of the guide was aligned with the PCL. The stylus was used to assess cut thickness. The medial side, most involved side, was set for a 4mm cut. This was then held in position and pinned into place with 2 additional pins and a cross pin for stability. The medial and lateral collateral ligaments were protected and the cut was performed. With this completed, it was assessed and noted to be of appropriate dimensions. The guide was removed. A spacer block was inserted and the knee was brought into extension. The 5mm spacer block provided full extension, without hyperextension and with stability of both the medial and lateral collateral ligaments was assessed. The pins from the femur and the tibia were then removed. The distal femur was then sized. The anterior stylus was placed onto the lateral ridge of the anterior femur. This indicated a size 4 femur. The external rotation of the guide was adjusted to 3 degrees to match the epicondylar axis, perpendicular to [place]?s line. The 4-in-1 cutting guide was the placed. The posterior medial femur cut was evaluated and appeared of good thickness. The spacer block was inserted underneath the cutting guide and stability was confirmed in 90 degrees of flexion. An heather wing was used to confirm appropriate position of the anterior cut to avoid notching. This cutting guide was ensured to be flush on the cut surface and then pinned into place with headed pins. While protecting the soft tissues, quad tendon, and collateral ligaments, the anterior and posterior cuts were performed with a saw. The central two pins were removed and the posterior and anterior chamfers were cut next. The notch-cutting guide was placed. This was pinned to lateralize the femoral component as much as possible while keeping it flush on the cut surface. This was then pinned into position. A reciprocating saw was used to make the notch cut. A rasp smoothed the cut surfaces. The medial and lateral menisci were removed. A trial femoral component was then inserted, impacted down to the cut surfaces, and the lug holes were drilled. A provisional trial tibial component was placed and the knee was brought through range of motion. There was noted to be excellent extension and flexion. There was no significant instability. The patella was tracking without thumbs. A size 5mm polyethylene component provided the best range of motion and stability with less than 2mm gapping with medial and lateral stress and full extension without significant hyperextension. The tibial cut surface was fully exposed. The tibia was then sized as a 4. The tibia had been previously marked during trialing to correspond to the center of the tibial component to help with rotation. The trial was aligned to this shyam, approximately rotated to the medial 1/3rd of the tibial tubercle. The trial was pinned into place. The tibia was prepared with a reamer and a keel punch and lug holes. The knee was then brought into extension and the patella was measured as 23mm. Using the patellar clamp and cut guide, this was resected to a flat surface with at least 13mm of thickness remaining. The size 35 patella fit the best. This was oriented and then clamped into position. The lugs were drilled. The trial components were removed. The final components were opened on the back table. The periosteal and capsular tissues, especially posteriorly, around the knee were then systematically injected with a periarticular cocktail consisting of 246mg of Ropivacaine, 0.5mg of Epinephrine, 0.08mg of Clonidine, and 30mg of Ketorolac, diluted to 100cc. On the back table, with the implants opened, the cement was mixed. One batch of high viscosity cement was prepared with vacuum assistance. After the cement was ready a small amount was placed on the cut surface of the patella and the patellar button was clamped into position and held. While the cement was hardening, the cementless knee components were placed. Starting with the tibial component, the tibia was subluxed anteriorly and the lug holes of the component were lined up. The tibia was then impacted with an impactor and mallet until the tibial component was in contact with the tibia. The final polyethylene component was inserted. Then, the femoral component was inserted. The lug holes were aligned and the component was impacted into position. The knee was irrigated with Surgiphor Betadine solution. This was allowed to sit in the knee for 3 minutes and then it was irrigated out with saline. After the cement had finally cured, approximately 15min, the clamp was removed from the patella and the knee was taken through range of motion. The patella was tracking with a no-thumbs technique. The capsule was then reapproximated with a No. 1 Vicryl at multiple locations. The capsule was finally closed with a No. 2 Stratafix, barbed suture. The second dosing of 1g TXA was started. Deep tissues were then reapproximated with 0 Vicryl and 2-0 Vicryl. The skin was closed with a running 3-0 Monocryl in a subcuticular fashion. This was reinforced with skin glue. A Mepilex silver dressing was applied along with a [id number] ALCON wrap. A CryoCuff was applied. Sindhu was transferred to the hospital bed without difficulty an suffering no apparent complication. She has a good prognosis. Physical therapy will start today and without restrictions, weight-bearing as tolerated. Aspirin 81mg BID will be used for DVT prophylaxis. Date of Procedure: 05/30/24
--- NOTE | 2024-05-30 13:28 | W.ANESPOSTOP ---
Postoperative Evaluation Date, Time and Location Date Performed: 05/30/24 Time Performed: 13:28 Patient Location: Day Surgery Unit Vital Signs Most Recent Imported Vital Signs: Most Recent Vital Signs Temp Pulse Resp BP Pulse Ox 36.1 C L 74 16 143/60 H 98 05/30/24 11:49 05/30/24 11:49 05/30/24 11:49 05/30/24 11:49 05/30/24 11:49 Pain Score Most Recent Pain Score: Most Recent Pain Score Pain Level 0 05/30/24 12:15 Assessment Mental Status: Awake (Alert & Oriented to Patient Baseline) Airway and Respiratory Function: Patent airway with normal (patient baseline) respiratory exam Cardiovascular Function: Hemodynamically Stable Hydration Status: Adequately Hydrated Nausea & Vomiting: No Nausea or Vomiting Pain: Pain is tolerable per patient Peripheral Nerve Block: Regional nerve block not resolved at time of post operative discharge
--- NOTE | 2024-05-30 13:31 | PT.INIE ---
PT Notes Visit Reasons: Right knee DJD Physical Therapy Day Surgery Initial Evaluation Date:05/30/2024 Referring Doctor: Dr Corado PT Orders: PT CONSULT: s/p Ortho surgery Precautions: WBAT RLE,activity as tolerated, TEDs x 2 weeks Patient Profile/Admitting Diagnosis: Pt is 74 yo female presenting s/p elective R TKA under spinal anesthesia. Post op uncomplicated PMHX:OA, Hypothyroidism, Dyslipidemia, polycythemia, insomnia,DIANE, Asthma, GERD, low back pain, dyspnea, Esophageal dysphagia, Unilateral vocal cord paralysis, cataract right eye, s/p L TKA Social History/Home Situation: Pt resides alone in 2 story home with 2 steps to enter with no rails. Her bedroom is on the 2nd floor She has 13 steps with left rail ascending. She is independent with ADl, ambulation, cooking, cleaning, meal prep , medication mgmt, driving. She takes care of 2 of her great grandchildren ( 6 and 9 yrs old). Her shower has a suction cup grab bar. Pt reports she will be staying on the first floor. Equipment Owned/DME: SPC , grab bar in shower, borrowed FWW( adjusted to appropriate size) Subjective:Pt reports her thigh feels like it is cramping and she has to use the bathroom. She reports she is borrowing a friends FWW. Objective: [] General Observation: female semireclined on stretcher with cryocuff to right knee Mental Status: A + O x 4 cooperative motivated to participate. Pain: 3/10 mid thigh right up to hip ROM: Right Upper Extremity: WFL Left Upper Extremity: WNL Right Lower Extremity: WNL except knee 0-94degrees Left Lower Extremity: WNL Strength: Right Upper Extremity: shoulder 4/5 elbow and hand 5/5 Left Upper Extremity: 5/5 Right Lower Extremity: Hip flexion: 3-/5; hip abduction: 3- /5; hip extension: 3 /5; knee extension: 3 /5; knee flexion:2+ /5 ankle DF: 3+ /5 ; ankle PF: 3+ /5, able to elicit quad set without glute hamstring compensation, perform short range SLR without lag for 3 reps of 10 Left Lower Extremity: 5/5 Sensation: intact Bed Mobility/Transfers: Supine to sit supervision Sit to stand supervision Stand to sit supervision Bed to chair Supervision with FWW Gait:ambulates 150 feet level surfaces including turns with FWW with SBA and initial cue to hold knee extension at mid stance on right. Pt demonstrates impaired knee flexion during right swing phase, early heel off R, decreased step length. Stairs: 2 steps with 2 rails SBA step to pattern, then 2 steps with SPC CGA step to pattern Balance: Static Sitting: Normal Dynamic Sitting: Good Static Standing: Good Dynamic Standing: Fair + Special Tests: Mobility Limitations Standardized Measure [facility] 6 clicks Basic Mobility Inpatient Short Form: Raw Score: 22 CMS Score: 20.91% Informed Consent/Education: Patient instructed in purpose of PT consult. Packet containing TKA exercise protocol has been given to patient. Education and training on initial set of exercises that can be done at home have been completed with patient. Assessment: Patient presents with clinical signs and symptoms consistent with current/admitting diagnoses that have resulted to mobility limitations, gait instability, generalized weakness, and impairment of motor control as demonstrated by the following impairment level findings: 1. Decreased strength to right knee major muscle groups 2. Impaired standing balance 3. Limitation of joint range of motion in right knee 4. Impaired standing functional activity tolerance Impairments are contributing to the following functional limitations: 1. Inability to safely ambulate without assistive device 2. Increase completion time for mobility ADL performance 3. Increased fall risk 4. Inability to safely perform stairs without assistance Patient is assessed as a moderate complexity based on the following: History:74-year-old female with impairment level findings, functional limitations, and past medical history as indicated above Examination: Demonstrable impairment in strength, balance, and mobility level with underlying impairments and functional limitations as documented above Presentation:stable/evolving Decision Making: moderate Goals: N/A. Plan of Care/Treatment Plan: N/A. DISCHARGE RECOMMENDATIONS: Home with Outpatient PT as scheduled TREATMENT CODE/TIME:16244 / [id number] Thank you for the opportunity to participate in the care of this patient. Please sign an return this page within 30 days if you agree with the above POC. Thank you! Physician Signature Date [facility]
== END 2024-05-30 13:35 | disposition home or self-care (01) ==
PROVIDERS: PCP Family Medicine; Visit Provider Student in an Organized Health Care Education/Training Program
PROC: (CPT 27447; principal; 2024-05-30 09:30)
DX: M17.11 Unilateral primary osteoarthritis, right knee (principal); M25.561 Pain in right knee; G89.18 Other acute postprocedural pain; E89.0 Postprocedural hypothyroidism; D75.1 Secondary polycythemia; E78.5 Hyperlipidemia, unspecified; G47.33 Obstructive sleep apnea (adult) (pediatric); J84.9 Interstitial pulmonary disease, unspecified; E11.9 Type 2 diabetes mellitus without complications
CPT/HCPCS: 27447; 64447; 97162; C1776; J0171; J0690; J1100; J2250; J2371; J2401; J2405; J2704

== ENCOUNTER 2024-06-12 15:50 | Outpatient (CLI) | payer MEDICARE, SELFPAY ==
--- NOTE | 2024-06-12 13:32 | DI.RAD_ITS ---
Exam(s) XR KNEE RT 1V XR STANDING ALIGNMENT EXAM: XR STANDING ALIGNMENT CLINICAL HISTORY: 1st post op S/P R TKA. TECHNIQUE: 2D digital imaging was performed. Standing AP views were performed from the pelvis throu gh the ankles. Lateral view of the right knee. COMPARISON: CR XR KNEE RT 1V from 02/21/2024 CR XR STANDING ALIGNMENT from 02/21/2024 CR XR KNEE RT 1V from 06/12/2024 FINDINGS: BONES: No acute fracture is present. No bony destructive lesion is seen. Leg length discrepancy: No significant overall leg length discrepancy. JOINTS: Knees: Bilateral total knee prostheses. The right prosthesis has been placed since the prior exam. The ankle joints show mild degenerative changes. The hip joints are maintained. Mild acetabular spurring. SOFT TISSUE: Right lower extremity edema. IMPRESSION: Bilateral total knee prostheses. No significant leg length discrepancy. DATA REPOSITORY: RADIATION DOSE DELIVERED:
== END 2024-06-12 15:51 | disposition home or self-care (01) ==
LOC: DIORS 15:50
PROVIDERS: PCP Family Medicine; Visit Provider Student in an Organized Health Care Education/Training Program
DX: Z96.651 Presence of right artificial knee joint (principal); Z47.1 Aftercare following joint replacement surgery
CPT/HCPCS: 99024; 73560; 77073

== ENCOUNTER → 2024-07-13 14:12 | Outpatient (BNVA) | payer MEDICARE, SELFPAY | PROVIDERS: PCP Family Medicine; Referring Provider Family Medicine; Visit Provider Student in an Organized Health Care Education/Training Program | DX: Z47.1 Aftercare following joint replacement surgery (principal); Z96.651 Presence of right artificial knee joint | CPT/HCPCS: 99024 ==

== ENCOUNTER → 2024-08-24 13:41 | Outpatient (BNVA) | payer MEDICARE, SELFPAY | PROVIDERS: PCP Family Medicine; Referring Provider Family Medicine | DX: Z47.1 Aftercare following joint replacement surgery (principal); Z96.651 Presence of right artificial knee joint | CPT/HCPCS: 99024 ==

== ENCOUNTER → 2025-03-15 10:48 | Outpatient (BNVA) | payer MEDICARE, SELFPAY | PROVIDERS: PCP Family Medicine; Referring Provider Family Medicine; Visit Provider Internal Medicine Pulmonary Disease | DX: G47.33 Obstructive sleep apnea (adult) (pediatric) (principal); J45.909 Unspecified asthma, uncomplicated; J84.112 Idiopathic pulmonary fibrosis; Z23 Encounter for immunization | CPT/HCPCS: 90471; 90684; 99215 ==